=== PATIENT | male | born 1955 | race Caucasian/White ===

== ENCOUNTER → 2017-08-04 | Outpatient (CLI) | payer OTHER | END | disposition home or self-care (01) | LOC: PLD 11:21 → LAB SHORT 11:21 | DX: D22.5 Melanocytic nevi of trunk (principal) | CPT/HCPCS: 88305 ==

== ENCOUNTER → 2017-08-17 | Outpatient (CLI) | payer OTHER ==
[2017-08-17 11:53] LABS: Source, Urine Clean Catch
[2017-08-17 14:24] LABS: Appearance, Urine Clear (Clear); Bilirubin, Urine Neg (Neg); Blood, Urine Neg (Neg); Color, Urine Yellow (P-Yellow); Glucose Qualitative, Urine Neg (Neg); Ketones, Urine Neg (Neg); Leukocyte Esterase, Urine Neg (Neg); Nitrite, Urine Neg (Neg); Protein, Urine Neg (Neg); Urobilinogen, Urine NORM (Normal); pH, Urine 6.5 (5.0-8.0)
== END | disposition home or self-care (01) ==
LOC: OLS 11:51 → LAB SHORT 11:51 → EDSTATUS 08-14 14:35 → LAB FUT 08-14 14:35
PROVIDERS: Internal Medicine
DX: R93.41 Abnormal radiologic findings on diagnostic imaging of renal pelvis, ureter, or bladder (principal)
CPT/HCPCS: 81003

== ENCOUNTER → 2020-08-22 | Outpatient (CLI) | payer OTHER | LOC: LAB SHORT 15:18 → PLD 15:18 | DX: D48.5 Neoplasm of uncertain behavior of skin (principal); L30.8 Other specified dermatitis; L11.9 Acantholytic disorder, unspecified | CPT/HCPCS: 88305; 88312 ==

== ENCOUNTER 2021-08-26 13:58 | Day surgery (SDC) | payer MEDICARE, OTHER ==
[~2021-08-26] VITALS: Ht 170.2 cm; Wt 92.0 kg
[2021-08-26] MEDS ORDERED: LISINOPRIL-HCT1 EACH PO (15:15)
[2021-08-26] MEDS ORDERED: ATORVASTATIN CA20 MG PO (15:16)
[2021-08-26] MEDS ORDERED: AMLODIPINE BESYL5 MG PO (15:16)
[2021-08-26] MEDS ORDERED: POTASSIUM CL ER 10 M (15:17)
== END 2021-08-26 17:14 | disposition home or self-care (01) ==
LOC: ORSCSDS 13:58
PROVIDERS: Internal Medicine Gastroenterology
PROC: 0DBM8ZX Excision of Descending Colon, Via Natural or Artificial Opening Endoscopic, Diagnostic (ICD-10-PCS; principal; 2021-08-26 15:15)
DX: Z12.11 Encounter for screening for malignant neoplasm of colon (principal); Z86.010 Personal history of colon polyps; D12.4 Benign neoplasm of descending colon; K57.30 Diverticulosis of large intestine without perforation or abscess without bleeding; I10 Essential (primary) hypertension; E78.5 Hyperlipidemia, unspecified; Z79.899 Other long term (current) drug therapy
CPT/HCPCS: 88305; J0461; J2405; J2704; J7120

== ENCOUNTER 2023-03-31 06:12 | Day surgery (SDC) | payer MEDICARE, OTHER ==
[2023-03-31] VITALS (16 sets, daily range): BP systolic 84–137; BP diastolic 50–83
[~2023-03-31] VITALS: Ht 172.7 cm; Wt 91.1 kg
[~2023-03-31 06:12] MED LIST: AMLODIPINE BESYL5 MG PO; ATORVASTATIN CA20 MG PO; LISINOPRIL-HCT1 EACH PO; POTA10T PO; POTASSIUM CL ER 10 M; VITAMIN D310 MC4 PO
--- NOTE | 2023-03-31 07:01 | NUR ---
Ambulatory in Day Surgery. History, Chart, Medications and Allergies reviewed before start of procedure. Patient confirms NPO status and agrees with scheduled surgery. Patient reports completing Chlorhexadine shower X2 prior to admission to hospital. Surgical site prepped with 2% Chlorhexidine cloth wipe. Patient States Post-Procedure ride home has been arranged.
--- NOTE | 2023-03-31 16:52 | NUR ---
SHIFT SUMMARY S/P L TKA, AQUACEL/JOSE CDI, WBAT, PHYSICAL THERAPY EVAL'D, AMB SBA FWW/GB, UP TO CHAIR, VOIDING, YOHANA PO, PAIN MANAGED, RFA IV SL/ABX PER EMAR, A&OX4, VSS/RA. WILL REPORT TO ONCOMING NOC RN.
[2023-04-01 00:06] VITALS: BP 133/73
[2023-04-01 05:14] VITALS: BP 130/72
--- NOTE | 2023-04-01 06:22 | NUR ---
SHIFT SUMMARY POD 1 L TKA PT TOLERATING PO INTAKE, VOIDING. UP TO THE [place] GAMBOA. WITH FWW GAIT BELT. POALR PAC ON ALL NIGHT , PAIN MANAGED PER EMAR. VSS. DRESSING TO L KNEE C/D/I. DISCHARGE TODAY. NO OHTER CONCERNS AT THIS TIME. CALL LIGHT WITHIN REACH.
[2023-04-01 06:24] LABS: BASOPHILS ABSOLUTE AUTO 0.04 K/mm3 (0.00-0.23); BASOPHILS PERCENT AUTO 0 % (0-2); EOSINOPHILS ABSOLUTE AUTO 0.12 K/mm3 (0.00-0.68); EOSINOPHILS PERCENT AUTO 1 % (0-6); Hematocrit 40.2 % (37.0-53.0); Hemoglobin 13.8 g/dL (13.5-17.5); IMMATURE GRAN ABSOLUTE AUTO 0.04 K/mm3 (0.00-0.10); IMMATURE GRAN PERCENT AUTO 0 % (0-1); LYMPHOCYTES ABSOLUTE AUTO 1.55 K/mm3 (0.84-5.20); LYMPHOCYTES PERCENT AUTO 11 % (21-46); MONOCYTES ABSOLUTE AUTO 1.71 K/mm3 (0.16-1.47); MONOCYTES PERCENT AUTO 13 % (4-13); Mean Corpuscular HGB 30.5 pg (26.0-34.0); Mean Corpuscular HGB Conc 34.3 g/dL (31.5-36.5); Mean Corpuscular Volume 89 fL (80-100); Mean Platelet Volume 10.6 fL (9.1-12.4); NEUTROPHILS ABSOLUTE AUTO 10.25 K/mm3 (1.96-9.15); NEUTROPHILS PERCENT AUTO 75 % (41-73); Platelet Count 198 K/mm3 (150-400); RDW Coefficient Variation 12.6 % (11.7-14.2); Red Blood Cell Count 4.53 M/mm3 (4.30-5.90); White Blood Cell Count 13.71 K/mm3 (4.00-11.30)
[2023-04-01 06:57] LABS: Bun/Creatinine Ratio 13.5 (12.0-20.0); Calcium, Blood 8.4 mg/dL (8.5-10.1); Creatinine, Blood 0.89 mg/dL (0.60-1.20); Potassium, Blood 3.4 mmol/L (3.5-5.5)
[2023-04-01 07:46] VITALS: BP 132/79
[2023-04-01] MEDS ORDERED: Percocet 5-3251 EACH PO (09:27)
[2023-04-01] MEDS ORDERED: ASPI81CH PO (09:27)
--- NOTE | 2023-04-01 11:01 | NUR ---
DISCHARGE PT HAS CLEARED THERAPY. PAIN WELL CONTROLLED. EATING, DRINKING, & VOIDING WELL. DRSGS, SCRIPT, & POLAR PACK SENT w/ PT. ESCORTED OUT VIA W/C.
== END 2023-04-01 11:05 | disposition home or self-care (01) ==
LOC: ORSCMMR 06:12 → ORD 07:30 → SURS 09:59 → ORSCMMR 04-01 11:05
PROVIDERS: Orthopaedic Surgery
PROC: 0SRD0JA Replacement of Left Knee Joint with Synthetic Substitute, Uncemented, Open Approach (ICD-10-PCS; principal; 2023-03-31 07:30)
DX: M17.12 Unilateral primary osteoarthritis, left knee (principal); I10 Essential (primary) hypertension; Z79.899 Other long term (current) drug therapy; Z79.82 Long term (current) use of aspirin
CPT/HCPCS: 36415; 73560-LT; 80048; 85025; 97110; 97116; 97162; 97530; A9270; C1713; C1776; J0171; J0690; J0735; J1885; J2250; J2704; J2795; J7120